=== PATIENT | female | born 1930 | race Caucasian/White ===

== ENCOUNTER 2017-10-05 22:02 | Inpatient (IN) | payer OTHER ==
[~2017-10-05] VITALS: Ht 157.5 cm; Wt 75.1 kg
[~2017-10-05 22:02] MED LIST: BENAZEPRIL HCL20 MG PO; CALCIUM 500 MG1 EACH PO; CALCIUM 600 MG1 EACH PO; CINNAMON500 MG PO; COL-RITE50 MG PO; FIBER LAXATIV0.52 GM PO; K-DUR10 MEQ PO; LOZOL2.5 MG PO; MULTIVITAMIN1 EAC2 PO; NORVASC5 MG PO; TYLENOL EXTRA500 MG PO; VITAMIN D-3 401 EACH PO; VITAMIN D32000 UNI1 PO
[2017-10-06] MEDS ORDERED: IRON325 M1 PO (06:30)
[2017-10-06 06:33] VITALS: BP 180/83
[2017-10-06 10:13] LABS: HEMATOCRIT 32.1 % (36.0-46.0); MCV 90.9 FL (83-99)
[2017-10-06 10:24] LABS: HEMOGLOBIN 10.5 G/DL (11.9-15.5)
[2017-10-06 13:24] LABS: HEMATOCRIT 27.3 % (36.0-46.0); HEMOGLOBIN 8.9 G/DL (11.9-15.5); MCV 93.2 FL (83-99)
[2017-10-06 19:40] VITALS: BP 131/61
[2017-10-06 20:00] VITALS: BP 131/61
[2017-10-07] VITALS (10 sets, daily range): BP systolic 117–154; BP diastolic 56–68
[2017-10-07 06:32] LABS: HEMATOCRIT 20.8 % (36.0-46.0)
[2017-10-07 06:38] LABS: HEMOGLOBIN 6.9 G/DL (11.9-15.5); MCV 88.1 FL (83-99)
[2017-10-07 07:01] LABS: CHLORIDE 106 MEQ/L (99-109); CREATININE 1.8 MG/DL (0.6-1.3); GFR ESTIMATE (CALCULATED) 28 mL/min/; GLUCOSE 114 mg/dL (70-99); POTASSIUM 3.5 MEQ/L (3.7-5.4); SODIUM 141 MEQ/L (136-147); UREA NITROGEN (BUN) 26 mg/dL (9-23)
[2017-10-07 13:28] LABS: HEMATOCRIT 26.1 % (36.0-46.0); HEMOGLOBIN 8.8 G/DL (11.9-15.5); MCHC 33.7 G/DL (30.0-36.0); MCV 89.1 FL (83-99); RBC DIS.WIDTH-CV 14.6 % (11.8-14.6); RBC DIS.WIDTH-SD 46.8 % (39-53); WHITE BLOOD COUNT 8.2 K/uL (4.1-10.2)
[2017-10-07 14:46] LABS: RED BLOOD COUNT 2.93 M/uL (3.80-5.20)
[2017-10-07 15:53] LABS: PLATELET COUNT 97 K/uL (156-360)
[2017-10-08 04:00] VITALS: BP 135/65
[2017-10-08 07:17] VITALS: BP 132/62
[2017-10-08 09:04] LABS: HEMATOCRIT 25.3 % (36.0-46.0); HEMOGLOBIN 8.5 G/DL (11.9-15.5); MCV 89.4 FL (83-99)
[2017-10-08 12:15] VITALS: BP 130/65
[2017-10-08 15:50] VITALS: BP 146/75
[2017-10-08 19:00] VITALS: BP 136/67
[2017-10-08 22:40] VITALS: BP 120/59
[2017-10-09 04:00] VITALS: BP 119/69
[2017-10-09 09:00] VITALS: BP 132/59
[2017-10-09 12:33] VITALS: BP 123/56
[2017-10-09 15:13] LABS: CHLORIDE 106 MEQ/L (99-109); MAGNESIUM 1.5 mg/dl (1.3-2.7); SODIUM 138 MEQ/L (136-147)
[2017-10-09 15:24] LABS: POTASSIUM 4.7 MEQ/L (3.7-5.4)
[2017-10-09 15:25] LABS: CREATININE 1.4 MG/DL (0.6-1.3); GFR ESTIMATE (CALCULATED) 38 mL/min/; GLUCOSE 114 mg/dL (70-99); UREA NITROGEN (BUN) 28 mg/dL (9-23)
[2017-10-09 16:00] VITALS: BP 135/65
[2017-10-09 20:41] VITALS: BP 156/58
[2017-10-10] VITALS: BP 128/64
[2017-10-10 04:01] VITALS: BP 133/67
[2017-10-10 08:27] VITALS: BP 142/58
[2017-10-10 12:30] VITALS: BP 145/64
[2017-10-10 19:30] VITALS: BP 146/67
[2017-10-10 23:37] VITALS: BP 142/67
[2017-10-11] VITALS (9 sets, daily range): BP systolic 130–171; BP diastolic 64–83
[2017-10-11 07:02] LABS: HEMATOCRIT 23.1 % (36.0-46.0); HEMOGLOBIN 7.6 G/DL (11.9-15.5); MCH 30.2 PG (29.0-34.0); MCHC 32.9 G/DL (30.0-36.0); MCV 91.7 FL (83-99); RBC DIS.WIDTH-CV 14.8 % (11.8-14.6); RBC DIS.WIDTH-SD 48.5 % (39-53); RED BLOOD COUNT 2.52 M/uL (3.80-5.20); WHITE BLOOD COUNT 4.7 K/uL (4.1-10.2)
[2017-10-11 07:07] LABS: PLATELET COUNT 152 K/uL (156-360)
[2017-10-12 03:35] VITALS: BP 147/67
[2017-10-12 05:41] LABS: HEMATOCRIT 25.4 % (36.0-46.0); HEMOGLOBIN 8.4 G/DL (11.9-15.5); MCV 88.8 FL (83-99)
[2017-10-12 07:25] VITALS: BP 155/87
[2017-10-12 11:31] VITALS: BP 147/71
[2017-10-12 15:35] VITALS: BP 156/89
== END 2017-10-12 19:40 | DRG 470 ==
LOC: ENRESERV 22:02 → CANRESERV 22:02 → 4EAST 10-06 05:28 → 2SOUTH 10-06 05:28 → ENRESERV 10-06 16:47 → 4EAST 10-06 19:58 → ENRESERV 10-08 06:29 → CANRESERV 10-08 17:31 → 4EAST 10-12 19:40
PROVIDERS: Anesthesiology; Internal Medicine Cardiovascular Disease; Orthopaedic Surgery; Orthopaedic Surgery Sports Medicine; Physician Assistant; Physician Assistant Medical
DX: M16.11 Unilateral primary osteoarthritis, right hip (principal); D62 Acute posthemorrhagic anemia; I47.2 Ventricular tachycardia; I49.8 Other specified cardiac arrhythmias; E87.6 Hypokalemia; N28.9 Disorder of kidney and ureter, unspecified; D69.6 Thrombocytopenia, unspecified; I13.10 Hypertensive heart and chronic kidney disease without heart failure, with stage 1 through stage 4 chronic kidney disease, or unspecified chronic kidney disease; N18.9 Chronic kidney disease, unspecified; R53.1 Weakness; Z85.3 Personal history of malignant neoplasm of breast; Z85.42 Personal history of malignant neoplasm of other parts of uterus
CPT/HCPCS: 71045; 80048; 82043; 82570; 82948; 83735; 84156; 85014; 85018; 85027; 86335; 86850; 86900; 86901; 86920; 93005; 97530 GO; C1713; J0461; J0690; J1170; J1885; J2370; J2405; J3010; J7050; J7120; P9016; P9040; S0020

== ENCOUNTER 2017-10-14 23:30 | Emergency (ER) | payer OTHER ==
[~2017-10-14] VITALS: Ht 157.5 cm; Wt 78.9 kg
[~2017-10-14 23:30] MED LIST changes: +IRON325 M1 PO
[2017-10-15 00:01] LABS: BASOPHIL (%) 0.3 % (0-1); EOSINOPHIL COUNT 0.3 K/uL (0-0.3); HEMATOCRIT 28.2 % (36.0-46.0); HEMOGLOBIN 9.4 G/DL (11.9-15.5); IMMATURE GRANULOCYTE (%) 1.2 % (0.0-0.7); LYMPHOCYTE (%) 23.2 % (15-42); LYMPHOCYTE COUNT 1.5 K/uL (1.0-2.8); MCH 30.1 PG (29.0-34.0); MCHC 33.3 G/DL (30.0-36.0); MCV 90.4 FL (83-99); MONOCYTE (%) 7.7 % (3-12); MONOCYTE COUNT 0.5 K/uL (0-0.8); NEUTROPHIL (%) 63.6 % (45-76); NEUTROPHIL COUNT 4.2 K/uL (1.8-6.4); PLATELET COUNT 178 K/uL (156-360); RBC DIS.WIDTH-CV 14.9 % (11.8-14.6); RBC DIS.WIDTH-SD 48.5 % (39-53); RED BLOOD COUNT 3.12 M/uL (3.80-5.20); WHITE BLOOD COUNT 6.5 K/uL (4.1-10.2)
[2017-10-15 00:10] LABS: CHLORIDE 104 mEq/L (99-109); SODIUM 138 mEq/L (136-147)
[2017-10-15 00:12] LABS: GLUCOSE 110 mg/dL (70-99)
[2017-10-15 00:16] LABS: CREATININE 1.2 mg/dL (0.6-1.3); GFR ESTIMATE (CALCULATED) 45 mL/min/
[2017-10-15 00:17] LABS: UREA NITROGEN (BUN) 22 mg/dL (9-23)
[2017-10-15 00:22] LABS: INTER. NORMALIZED RATIO 1.1
[2017-10-15 00:25] LABS: PTT 26.5 SEC (25-37)
[2017-10-15 01:27] VITALS: BP 141/61
== END 2017-10-15 01:31 ==
LOC: EME 23:30
PROVIDERS: Emergency Medicine
DX: L76.22 Postprocedural hemorrhage of skin and subcutaneous tissue following other procedure (principal); Z48.01 Encounter for change or removal of surgical wound dressing; Z96.641 Presence of right artificial hip joint; Z85.9 Personal history of malignant neoplasm, unspecified
CPT/HCPCS: 80048 91; 85025 91; 85610; 85730

== ENCOUNTER 2017-10-29 09:04 | Inpatient (IN) | payer OTHER ==
[~2017-10-29] VITALS: Ht 160 cm; Wt 74.7 kg
[2017-10-29 10:14] VITALS: BP 136/63
[2017-10-29 10:38] LABS: BASOPHIL (%) 0.4 % (0-1); EOSINOPHIL (%) 2.3 % (0-5); EOSINOPHIL COUNT 0.2 K/uL (0-0.3); HEMATOCRIT 32.8 % (36.0-46.0); HEMOGLOBIN 10.7 G/DL (11.9-15.5); IMMATURE GRANULOCYTE (%) 1.9 % (0.0-0.7); LYMPHOCYTE (%) 15.2 % (15-42); LYMPHOCYTE COUNT 1.1 K/uL (1.0-2.8); MCH 29.6 PG (29.0-34.0); MCHC 32.6 G/DL (30.0-36.0); MCV 90.6 FL (83-99); MONOCYTE (%) 6.6 % (3-12); MONOCYTE COUNT 0.5 K/uL (0-0.8); NEUTROPHIL (%) 73.6 % (45-76); NEUTROPHIL COUNT 5.5 K/uL (1.8-6.4); PLATELET COUNT 240 K/uL (156-360); RBC DIS.WIDTH-CV 15.2 % (11.8-14.6); RBC DIS.WIDTH-SD 50.5 % (39-53); RED BLOOD COUNT 3.62 M/uL (3.80-5.20); WHITE BLOOD COUNT 7.5 K/uL (4.1-10.2)
[2017-10-29 11:01] LABS: ALBUMIN 3.3 G/DL (3.2-4.8); ALKALINE PHOSPHATASE 71 IU/L (3-129); ALT (GPT) 8 IU/L (3-49); AST (GOT) 16 IU/L (2-34); C-REACTIVE PROTEIN 26.3 MG/L (0-10); GLUCOSE 116 mg/dL (70-99); POTASSIUM 4.3 MEQ/L (3.7-5.4); TOTAL BILIRUBIN 0.9 MG/DL (0.0-1.0); TOTAL PROTEIN 5.5 G/DL (6.4-8.3); UREA NITROGEN (BUN) 18 mg/dL (9-23)
[2017-10-29 11:05] LABS: ERTH.SED.RATE 26 MM/HR (0-30)
[2017-10-29 11:08] LABS: CHLORIDE 101 MEQ/L (99-109); CREATININE 1.5 MG/DL (0.6-1.3); GFR ESTIMATE (CALCULATED) 35 mL/min/; SODIUM 138 MEQ/L (136-147)
[2017-10-29 12:37] LABS: INTER. NORMALIZED RATIO 1.2
[2017-10-29 12:40] LABS: PTT 28.7 SEC (25-37)
[2017-10-29 15:10] VITALS: BP 154/67
[2017-10-29 20:40] VITALS: BP 132/62
[2017-10-29 23:59] VITALS: BP 124/87
[2017-10-30 03:54] VITALS: BP 114/54
[2017-10-30 08:02] VITALS: BP 144/67
[2017-10-30 12:03] VITALS: BP 153/67
[2017-10-30 15:43] LABS: C DIFF TOXIN NEGATIVE (NEGATIVE)
[2017-10-30 16:18] VITALS: BP 137/63
[2017-10-30 19:47] VITALS: BP 147/69
[2017-10-31] VITALS (9 sets, daily range): BP systolic 107–149; BP diastolic 52–68
[2017-10-31 06:15] LABS: BASOPHIL (%) 0.3 % (0-1); EOSINOPHIL (%) 1.9 % (0-5); EOSINOPHIL COUNT 0.1 K/uL (0-0.3); HEMATOCRIT 26.5 % (36.0-46.0); HEMOGLOBIN 8.8 G/DL (11.9-15.5); LYMPHOCYTE (%) 13.3 % (15-42); LYMPHOCYTE COUNT 0.9 K/uL (1.0-2.8); MCH 29.2 PG (29.0-34.0); MCHC 33.2 G/DL (30.0-36.0); MONOCYTE (%) 5.4 % (3-12); MONOCYTE COUNT 0.4 K/uL (0-0.8); NEUTROPHIL (%) 78.1 % (45-76); NEUTROPHIL COUNT 5.2 K/uL (1.8-6.4); PLATELET COUNT 207 K/uL (156-360); RBC DIS.WIDTH-CV 14.7 % (11.8-14.6); RBC DIS.WIDTH-SD 47.6 % (39-53); RED BLOOD COUNT 3.01 M/uL (3.80-5.20); WHITE BLOOD COUNT 6.7 K/uL (4.1-10.2)
[2017-10-31 12:55] LABS: HEMATOCRIT 24.2 % (36.0-46.0); HEMOGLOBIN 7.9 G/DL (11.9-15.5); MCV 90.6 FL (83-99)
[2017-11-01] VITALS (10 sets, daily range): BP systolic 109–141; BP diastolic 51–68
[2017-11-01 06:47] LABS: HEMATOCRIT 19.9 % (36.0-46.0); MCV 88.4 FL (83-99)
[2017-11-01 06:53] LABS: HEMOGLOBIN 6.4 G/DL (11.9-15.5)
[2017-11-01 12:42] LABS: HEMATOCRIT 20.9 % (36.0-46.0); MCV 89.3 FL (83-99)
[2017-11-01 12:43] LABS: HEMOGLOBIN 6.9 G/DL (11.9-15.5)
[2017-11-01 20:10] LABS: HEMATOCRIT 27.1 % (36.0-46.0); MCV 86.9 FL (83-99)
[2017-11-02 04:40] VITALS: BP 124/61
[2017-11-02 06:10] LABS: BASOPHIL (%) 0.5 % (0-1); BASOPHIL COUNT 0.1 K/uL (0-0.1); EOSINOPHIL (%) 2.6 % (0-5); EOSINOPHIL COUNT 0.3 K/uL (0-0.3); HEMATOCRIT 24.4 % (36.0-46.0); LYMPHOCYTE (%) 13.9 % (15-42); LYMPHOCYTE COUNT 1.4 K/uL (1.0-2.8); MCH 28.9 PG (29.0-34.0); MCHC 32.8 G/DL (30.0-36.0); MCV 88.1 FL (83-99); MONOCYTE (%) 5.5 % (3-12); MONOCYTE COUNT 0.6 K/uL (0-0.8); NEUTROPHIL (%) 76.5 % (45-76); NEUTROPHIL COUNT 7.8 K/uL (1.8-6.4); RBC DIS.WIDTH-CV 15.5 % (11.8-14.6); RBC DIS.WIDTH-SD 50.1 % (39-53); RED BLOOD COUNT 2.77 M/uL (3.80-5.20); WHITE BLOOD COUNT 10.2 K/uL (4.1-10.2)
[2017-11-02 06:54] LABS: PLAT.SUFFICIENCY ADEQUATE; PLATELET CLUMPS PRESENT - PLATELET COUNT APPEARS ADQ.
[2017-11-02 07:06] LABS: PLATELET COUNT UNABLE TO REPORT K/uL (156-360)
[2017-11-02 07:44] VITALS: BP 137/65
[2017-11-02 12:15] VITALS: BP 131/60
[2017-11-02 16:05] VITALS: BP 135/64
[2017-11-02 19:21] VITALS: BP 131/60
[2017-11-02 23:24] VITALS: BP 118/56
[2017-11-03] VITALS (7 sets, daily range): BP systolic 117–736; BP diastolic 55–65
[2017-11-03 09:46] LABS: HEMATOCRIT 24.7 % (36.0-46.0); HEMOGLOBIN 8.1 G/DL (11.9-15.5); MCH 28.8 PG (29.0-34.0); MCHC 32.8 G/DL (30.0-36.0); MCV 87.9 FL (83-99); RBC DIS.WIDTH-CV 14.9 % (11.8-14.6); RBC DIS.WIDTH-SD 48.5 % (39-53); RED BLOOD COUNT 2.81 M/uL (3.80-5.20); WHITE BLOOD COUNT 8.7 K/uL (4.1-10.2)
[2017-11-03 09:47] LABS: PLATELET COUNT 160 K/uL (156-360)
[2017-11-04 04:30] VITALS: BP 134/58
[2017-11-04 07:37] VITALS: BP 116/58
[2017-11-04 11:31] VITALS: BP 124/59
[2017-11-04 15:11] VITALS: BP 145/62
[2017-11-04 20:24] VITALS: BP 149/64
[2017-11-05 00:41] VITALS: BP 120/58
[2017-11-05 03:46] VITALS: BP 136/63
[2017-11-05 07:53] VITALS: BP 145/61
[2017-11-05] MEDS ORDERED: HYDROCODON-ACE1 EAC7 PO (09:01)
[2017-11-05] MEDS ORDERED: ELIQUIS2.5 MG PO (09:01)
[2017-11-05 11:57] VITALS: BP 119/56
[2017-11-05] MEDS ORDERED: ANCEF,KEFZOL1 GM IV (11:58)
== END 2017-11-05 12:25 | DRG 468 ==
LOC: 3EAST 09:04 → ENRESERV 09:08 → 3EAST 09:47
PROVIDERS: Orthopaedic Surgery; Physician Assistant; Physician Assistant Surgical
DX: T84.51XA Infection and inflammatory reaction due to internal right hip prosthesis, initial encounter (principal); I13.10 Hypertensive heart and chronic kidney disease without heart failure, with stage 1 through stage 4 chronic kidney disease, or unspecified chronic kidney disease; Y83.1 Surgical operation with implant of artificial internal device as the cause of abnormal reaction of the patient, or of later complication, without mention of misadventure at the time of the procedure; I51.9 Heart disease, unspecified; E78.5 Hyperlipidemia, unspecified; Z96.641 Presence of right artificial hip joint; N18.9 Chronic kidney disease, unspecified; M16.11 Unilateral primary osteoarthritis, right hip; R94.31 Abnormal electrocardiogram [ECG] [EKG]; Z85.3 Personal history of malignant neoplasm of breast; B95.61 Methicillin susceptible Staphylococcus aureus infection as the cause of diseases classified elsewhere
CPT/HCPCS: 73501; 76937; 80053; 85014; 85018; 85025; 85027; 85610; 85652; 85730; 86140; 86850; 86900; 86901; 86920; 87070; 87075; 87077; 87147; 87186; 87205; 87493; 87641; 93005; 97530 GO; 97530 GP; C1713; C1755; C1776; J0690; J0696; J1100; J1170; J2370; J2405; J3010; J7120; P9016

== ENCOUNTER 2017-12-21 12:08 | Inpatient (IN) | payer OTHER ==
[~2017-12-21] VITALS: Ht 160 cm; Wt 72.1 kg
[~2017-12-21 12:08] MED LIST changes: +ANCEF,KEFZOL1 GM IV; +COL-RITE100 M1 PO; -COL-RITE50 MG PO; +ELIQUIS2.5 MG PO; +HYDROCODON-ACE1 EAC7 PO
[2017-12-21 16:41] LABS: HEMATOCRIT 35.6 % (36.0-46.0); HEMOGLOBIN 11.8 G/DL (11.9-15.5); MCHC 33.1 G/DL (30.0-36.0); MCV 93.4 FL (83-99); RBC DIS.WIDTH-CV 16.5 % (11.8-14.6); RBC DIS.WIDTH-SD 56.4 % (39-53); RED BLOOD COUNT 3.81 M/uL (3.80-5.20); WHITE BLOOD COUNT 7.4 K/uL (4.1-10.2)
[2017-12-21 17:02] LABS: TROP-I INTERPRETATION NEGATIVE; TROPONIN-I < 0.01 ng/mL (0.0-0.30)
[2017-12-21 17:08] LABS: CHLORIDE 110 mEq/L (99-109); POTASSIUM 4.5 mEq/L (3.7-5.4); SODIUM 142 mEq/L (136-147)
[2017-12-21 17:10] LABS: GLUCOSE 89 mg/dL (70-99)
[2017-12-21 17:14] LABS: CREATININE 1.2 mg/dL (0.6-1.3); GFR ESTIMATE (CALCULATED) 45 mL/min/
[2017-12-21 17:15] LABS: UREA NITROGEN (BUN) 23 mg/dL (9-23)
[2017-12-21 17:38] LABS: PLATELET COUNT 155 K/uL (156-360)
[2017-12-21 17:40] LABS: PLAT.SUFFICIENCY DECREASED
[2017-12-21 20:37] LABS: MAGNESIUM 1.6 mg/dL (1.3-2.7)
[2017-12-21] MEDS ORDERED: POTASSIUM CHLO10 ME3 PO (20:47)
[2017-12-21] MEDS ORDERED: DICLOXACILLIN500 MG PO (20:49)
[2017-12-21] MEDS ORDERED: TRAMADOL HCL50 MG PO (20:49)
[2017-12-21] MEDS ORDERED: MEGESTROL625 MG/5 M PO (20:50)
[2017-12-21] MEDS ORDERED: IRON325 M1 PO (20:52)
[2017-12-21 21:24] LABS: INTER. NORMALIZED RATIO 1.2
[2017-12-22 00:39] LABS: TROP-I INTERPRETATION NEGATIVE; TROPONIN-I 0.01 ng/mL (0.0-0.30)
[2017-12-22 06:18] LABS: HEMATOCRIT 34.9 % (36.0-46.0); HEMOGLOBIN 11.7 G/DL (11.9-15.5); MCH 30.7 PG (29.0-34.0); MCHC 33.5 G/DL (30.0-36.0); MCV 91.6 FL (83-99); PLATELET COUNT 146 K/uL (156-360); RBC DIS.WIDTH-CV 16.3 % (11.8-14.6); RBC DIS.WIDTH-SD 55.6 % (39-53); RED BLOOD COUNT 3.81 M/uL (3.80-5.20); WHITE BLOOD COUNT 6.1 K/uL (4.1-10.2)
[2017-12-22 06:39] LABS: ALBUMIN 3.7 g/dL (3.2-4.8); CHLORIDE 111 mEq/L (99-109); POTASSIUM 3.6 mEq/L (3.7-5.4); SODIUM 143 mEq/L (136-147)
[2017-12-22 06:42] LABS: GLUCOSE 84 mg/dL (70-99); TOTAL PROTEIN 5.5 g/dL (6.4-8.3)
[2017-12-22 06:44] LABS: TOTAL BILIRUBIN 0.9 mg/dL (0.0-1.0)
[2017-12-22 06:45] LABS: ALKALINE PHOSPHATASE 57 IU/L (3-129); CREATININE 1.2 mg/dL (0.6-1.3); GFR ESTIMATE (CALCULATED) 45 mL/min/
[2017-12-22 06:46] LABS: UREA NITROGEN (BUN) 22 mg/dL (9-23)
[2017-12-22 06:47] LABS: AST (GOT) 17 IU/L (2-34)
[2017-12-22 06:48] LABS: ALT (GPT) 9 IU/L (3-49)
[2017-12-22 06:49] LABS: TROP-I INTERPRETATION NEGATIVE; TROPONIN-I 0.02 ng/mL (0.0-0.30)
[2017-12-22 11:46] VITALS: BP 157/73
[2017-12-22 13:09] LABS: INTER. NORMALIZED RATIO 1.2
[2017-12-22 13:19] LABS: PTT 62.7 SEC (25-37)
[2017-12-22 16:17] VITALS: BP 145/72
[2017-12-22 20:24] VITALS: BP 160/79
[2017-12-23 00:42] VITALS: BP 152/79
[2017-12-23 04:43] VITALS: BP 165/90
[2017-12-23 06:39] LABS: HEMATOCRIT 33.6 % (36.0-46.0); HEMOGLOBIN 10.9 G/DL (11.9-15.5); MCH 30.2 PG (29.0-34.0); MCHC 32.4 G/DL (30.0-36.0); MCV 93.1 FL (83-99); PLATELET COUNT 139 K/uL (156-360); RBC DIS.WIDTH-CV 16.1 % (11.8-14.6); RBC DIS.WIDTH-SD 55.3 % (39-53); RED BLOOD COUNT 3.61 M/uL (3.80-5.20); WHITE BLOOD COUNT 5.7 K/uL (4.1-10.2)
[2017-12-23 07:56] VITALS: BP 146/67
[2017-12-23 12:00] VITALS: BP 150/75
[2017-12-23 12:01] LABS: INTER. NORMALIZED RATIO 1.3
[2017-12-23 12:31] LABS: CHLORIDE 108 MEQ/L (99-109); CREATININE 1.3 MG/DL (0.6-1.3); GFR ESTIMATE (CALCULATED) 41 mL/min/; GLUCOSE 83 mg/dL (70-99); MAGNESIUM 1.2 mg/dl (1.3-2.7); PHOSPHORUS 3.2 mg/dL (2.5-4.9); POTASSIUM 4.1 MEQ/L (3.7-5.4); SODIUM 141 MEQ/L (136-147); UREA NITROGEN (BUN) 18 mg/dL (9-23)
[2017-12-23 16:00] VITALS: BP 137/84
[2017-12-23 20:57] VITALS: BP 157/83
[2017-12-24 00:30] VITALS: BP 164/83
[2017-12-24 04:41] VITALS: BP 184/80
[2017-12-24 05:50] LABS: PTT 33.1 SEC (25-37)
[2017-12-24 06:11] VITALS: BP 165/11
[2017-12-24 08:12] VITALS: BP 175/92
[2017-12-24 12:00] VITALS: BP 138/69
[2017-12-24] MEDS ORDERED: ELIQUIS5 MG PO ×2 (17:27→17:28)
[2017-12-24] MEDS ORDERED: CARDIZEM60 MG PO (17:28)
[2017-12-24] MEDS ORDERED: FUROSEMIDE20 MG PO (17:29)
[2017-12-24 18:29] VITALS: BP 142/68
== END 2017-12-24 18:45 | disposition home health service (06) | DRG 176 ==
LOC: EME 12:08 → EDOF 20:01 → 4EAST 20:01 → ENRESERV 20:08 → CANRESERV 20:08 → EDOF 21:00 → ENRESERV 21:03 → EDOF 12-22 05:43 → ENRESERV 12-22 09:50 → 4EAST 12-22 11:35 → ENPENDDIS 12-24 → 4EAST 12-24 18:45
PROVIDERS: Hospitalist; Internal Medicine; Nurse Practitioner Family
DX: I26.99 Other pulmonary embolism without acute cor pulmonale (principal); T38.5X5A Adverse effect of other estrogens and progestogens, initial encounter; I48.2 Chronic atrial fibrillation; J81.1 Chronic pulmonary edema; I42.9 Cardiomyopathy, unspecified; I13.10 Hypertensive heart and chronic kidney disease without heart failure, with stage 1 through stage 4 chronic kidney disease, or unspecified chronic kidney disease; N18.3 Chronic kidney disease, stage 3 (moderate); R04.0 Epistaxis; E87.6 Hypokalemia; Z96.641 Presence of right artificial hip joint; Z85.3 Personal history of malignant neoplasm of breast; Z85.42 Personal history of malignant neoplasm of other parts of uterus; Z90.11 Acquired absence of right breast and nipple; Z90.710 Acquired absence of both cervix and uterus; Z98.41 Cataract extraction status, right eye; Z98.42 Cataract extraction status, left eye
CPT/HCPCS: 71046; 71275; 80048; 80053; 83735; 83880; 83880 GA; 84100; 84443; 84484; 85027; 85610; 85730; 93005; 93306; 93970; 99281; 99285; J0360; J1160; J1940